=== PATIENT | female | born 1960 | race Caucasian/White ===

== ENCOUNTER 2019-02-16 04:26 | Outpatient (CLI) | payer MEDICARE, MEDICAID ==
[~2019-02-16 04:26] MED LIST: CALC667C5 PO; FOLI0.4T2 PO; FOLI1CAP7 PO; HYDR-4069 PO; LABE300T2 PO; LINA5TAB4 PO; LISI-600 PO; MINO2.5T19 PO; NIFE60TA69 PO; PANT20TA2 PO; VALS160T2 PO
== END 2019-02-16 23:59 | disposition home or self-care (01) ==
LOC: DIABETIC 04:26
PROVIDERS: ATTEND Nurse Practitioner Family
DX: E11.22 Type 2 diabetes mellitus with diabetic chronic kidney disease (principal); I12.9 Hypertensive chronic kidney disease with stage 1 through stage 4 chronic kidney disease, or unspecified chronic kidney disease; N18.9 Chronic kidney disease, unspecified; Z79.4 Long term (current) use of insulin
CPT/HCPCS: G0108

== ENCOUNTER 2019-06-09 04:37 | Outpatient (CLI) | payer MEDICARE, MEDICAID | END 2019-06-09 23:59 | disposition home or self-care (01) | LOC: DIABETIC 04:37 | PROVIDERS: ATTEND Nurse Practitioner Family | DX: E11.9 Type 2 diabetes mellitus without complications (principal); I10 Essential (primary) hypertension; Z79.4 Long term (current) use of insulin | CPT/HCPCS: G0108 ==

== ENCOUNTER 2020-05-10 17:39 | Emergency (ER) | payer MEDICARE, MEDICAID ==
[~2020-05-10] VITALS: Ht 162.6 cm; Wt 59.1 kg
[~2020-05-10 17:39] MED LIST changes: +ATOR10TA70 PO; +CARV25TA2 PO; +CLON0.3T36 PO; +DILT180C53 PO; -LABE300T2 PO; +LANTUS SQ; -LINA5TAB4 PO; -MINO2.5T19 PO; -NIFE60TA69 PO; +NOVLG SQ; +ONDA-103 PO; -PANT20TA2 PO; +PANT20TA3 PO; -VALS160T2 PO
[2020-05-10 18:32] LABS: EOSINOPHILS # (AUTO) 1.1 X10'3 (0-0.9); HEMOGLOBIN 12.5 g/dl (12.0-16.0); MEAN CORPUSCULAR HGB CONC 32.9 g/dL (33.0-36.5); MONOCYTES # (AUTO) 0.3 X10'3 (0-0.9)
[2020-05-10 18:33] LABS: BASOPHILS # (AUTO) 0.1 X10'3 (0-0.2); BASOPHILS % (AUTO) 0.9 % (0-1); EOSINOPHILS % (AUTO) 14.6 % (0-6); HEMATOCRIT 37.9 % (35.0-45.0); LYMPHOCYTES # (AUTO) 1.6 X10'3 (1.1-4.8); LYMPHOCYTES % (AUTO) 20.7 % (21-51); MEAN CORPUSCULAR HEMOGLOBIN 32.4 PG (27.0-31.0); MEAN CORPUSCULAR VOLUME 98.5 FL (78-98); MEAN PLATELET VOLUME 9.2 FL (7.4-10.4); MONOCYTES % (AUTO) 3.8 % (2-12); NEUTROPHILS # (AUTO) 4.7 X10'3 (1.8-7.7); PLATELET COUNT 276 X10'3 (140-440); RED BLOOD COUNT 3.85 X10'6 (4.20-5.60); RED CELL DISTRIBUTION WIDTH 15.9 % (11.5-14.5); WHITE BLOOD COUNT 7.8 X10'3 (4.5-11.0)
[2020-05-10 18:48] LABS: ALANINE AMINOTRANSFERASE 29 U/L (12-78); ALBUMIN 4.4 G/DL (3.4-5.0); ALBUMIN/GLOBULIN RATIO 1.3 (1.1-1.5); ALKALINE PHOSPHATASE 100 IU/L (46-116); AMYLASE 26 U/L (25-115); ANION GAP 11 (8-16); ASPARTATE AMINO TRANSFERASE 35 U/L (10-37); BILIRUBIN,TOTAL 0.4 MG/DL (0.1-1.0); BLOOD UREA NITROGEN 10 MG/DL (7-18); BUN/CREATININE RATIO 2.8 (6.6-38.0); CALCIUM 9.6 MG/DL (8.5-10.1); CHLORIDE 100 MMOL/L (99-107); CREATININE 3.62 MG/DL (0.40-0.90); GLUCOSE 162 MG/DL (70-104); LIPASE 123 U/L (73-393); POTASSIUM 4.3 MMOL/L (3.5-5.1); SODIUM 140 MMOL/L (135-145); TOTAL CARBON DIOXIDE 29.3 MMOL/L (24-32); TOTAL PROTEIN 7.9 G/DL (6.4-8.2); eGFR 13 ML/MIN
[2020-05-10] MEDS ORDERED: ondansetron/PF 4mg/2ml inj IV ONE (19:00)
[2020-05-10] MEDS ORDERED: proCHLORperazine 10 MG/2 ml inj IV ONE (19:00)
[2020-05-10] MEDS ORDERED: hydrALAZINE 20mg/ml inj. IV ONE (19:55)
[2020-05-10 21:08] VITALS: BP 231/104
== END 2020-05-10 21:09 | disposition home or self-care (01) ==
LOC: ER 17:40
DX: I12.0 Hypertensive chronic kidney disease with stage 5 chronic kidney disease or end stage renal disease (principal); E11.22 Type 2 diabetes mellitus with diabetic chronic kidney disease; N18.6 End stage renal disease; R11.2 Nausea with vomiting, unspecified; R10.84 Generalized abdominal pain; Z99.2 Dependence on renal dialysis; Z79.4 Long term (current) use of insulin; Z79.899 Other long term (current) drug therapy
CPT/HCPCS: 36415; 80053; 82150; 83690; 85025; 96374; 96375; 99284; J0360; J0780; J2405

== ENCOUNTER 2020-05-31 15:55 | Emergency (ER) | payer MEDICARE, MEDICAID ==
[~2020-05-31] VITALS: Ht 162.6 cm; Wt 57.1 kg
[~2020-05-31 15:55] MED LIST changes: +PANT20TA18 PO; -PANT20TA3 PO
[2020-05-31 17:12] LABS: BASOPHILS # (AUTO) 0.1 X10'3 (0-0.2); BASOPHILS % (AUTO) 1.2 % (0-1); EOSINOPHILS # (AUTO) 1.1 X10'3 (0-0.9); EOSINOPHILS % (AUTO) 15.1 % (0-6); HEMATOCRIT 41.3 % (35.0-45.0); HEMOGLOBIN 13.6 g/dl (12.0-16.0); LYMPHOCYTES % (AUTO) 13.4 % (21-51); MEAN CORPUSCULAR HEMOGLOBIN 32.7 PG (27.0-31.0); MEAN CORPUSCULAR HGB CONC 32.8 g/dL (33.0-36.5); MEAN CORPUSCULAR VOLUME 99.5 FL (78-98); MEAN PLATELET VOLUME 8.7 FL (7.4-10.4); MONOCYTES # (AUTO) 0.3 X10'3 (0-0.9); MONOCYTES % (AUTO) 3.5 % (2-12); NEUTROPHILS % (AUTO) 66.8 % (42-75); PLATELET COUNT 203 X10'3 (140-440); RED BLOOD COUNT 4.15 X10'6 (4.20-5.60); WHITE BLOOD COUNT 7.5 X10'3 (4.5-11.0)
[2020-05-31 17:21] LABS: ALANINE AMINOTRANSFERASE 31 U/L (12-78); ALBUMIN 4.4 G/DL (3.4-5.0); ALBUMIN/GLOBULIN RATIO 1.3 (1.1-1.5); ALKALINE PHOSPHATASE 110 IU/L (46-116); ANION GAP 7 (8-16); ASPARTATE AMINO TRANSFERASE 9 U/L (10-37); BILIRUBIN,TOTAL 0.4 MG/DL (0.1-1.0); BLOOD UREA NITROGEN 18 MG/DL (7-18); BUN/CREATININE RATIO 4.3 (6.6-38.0); CALCIUM 9.4 MG/DL (8.5-10.1); CHLORIDE 100 MMOL/L (99-107); CREATININE 4.21 MG/DL (0.40-0.90); GLUCOSE 203 MG/DL (70-104); POTASSIUM 5.1 MMOL/L (3.5-5.1); SODIUM 136 MMOL/L (135-145); TOTAL CARBON DIOXIDE 29.3 MMOL/L (24-32); TOTAL PROTEIN 7.8 G/DL (6.4-8.2); eGFR 11 ML/MIN
[2020-05-31] MEDS ORDERED: dexamethasone sod phosphate 10mg/ml inj PO STA (17:51)
[2020-05-31] MEDS ORDERED: acetaminophen 325mg tablet PO ONE (17:55)
[2020-05-31] MEDS ORDERED: ondansetron 4mg rapidly disintigrating tab PO ONE (17:55)
[2020-05-31] MEDS ORDERED: hydrALAZINE 20mg/ml inj. IV ONE (18:40)
[2020-05-31] MEDS ORDERED: proCHLORperazine 10 MG/2 ml inj IV ONE (18:40)
[2020-05-31 20:31] VITALS: BP 211/99
[2020-05-31] MEDS ORDERED: ONDA4TAB6 PO (20:37)
== END 2020-05-31 20:32 | disposition home or self-care (01) ==
LOC: ER 15:56
DX: I12.9 Hypertensive chronic kidney disease with stage 1 through stage 4 chronic kidney disease, or unspecified chronic kidney disease (principal); E11.22 Type 2 diabetes mellitus with diabetic chronic kidney disease; N18.9 Chronic kidney disease, unspecified; R11.2 Nausea with vomiting, unspecified; R51 Headache; Z79.899 Other long term (current) drug therapy; Z79.4 Long term (current) use of insulin
CPT/HCPCS: 36415; 80053; 85025; 96374; 96375; 99284; J0360; J0780; J1100

== ENCOUNTER 2020-10-24 07:48 | Day surgery (SDC) | payer MEDICARE, MEDICAID ==
[2020-10-24] VITALS (8 sets, daily range): BP systolic 120–158; BP diastolic 58–75
[~2020-10-24] VITALS: Ht 162.6 cm; Wt 61.4 kg
[~2020-10-24 07:48] MED LIST changes: +ONDA4TAB6 PO
[2020-10-24] MEDS ORDERED: diphenhydrAMINE 25mg capsule PO PRN (08:10)
[2020-10-24] MEDS ORDERED: normal saline 1,000 ML IV SCH (08:10)
[2020-10-24] MEDS ORDERED: AMLO10TA PO (08:26)
[2020-10-24] MEDS ORDERED: VITA-268 PO (08:26)
[2020-10-24] MEDS ORDERED: ONDA8TAB13 PO (08:26)
[2020-10-24 09:23] LABS: BASOPHILS # (AUTO) 0.1 X10'3 (0-0.2); BASOPHILS % (AUTO) 1.8 % (0-1); EOSINOPHILS # (AUTO) 1.8 X10'3 (0-0.9); EOSINOPHILS % (AUTO) 22.3 % (0-6); HEMATOCRIT 37.4 % (35.0-45.0); LYMPHOCYTES # (AUTO) 1.5 X10'3 (1.1-4.8); LYMPHOCYTES % (AUTO) 18.8 % (21-51); MEAN CORPUSCULAR HEMOGLOBIN 31.6 PG (27.0-31.0); MEAN CORPUSCULAR HGB CONC 32.3 g/dL (33.0-36.5); MEAN PLATELET VOLUME 8.6 FL (7.4-10.4); MONOCYTES # (AUTO) 0.7 X10'3 (0-0.9); MONOCYTES % (AUTO) 8.6 % (2-12); NEUTROPHILS # (AUTO) 3.9 X10'3 (1.8-7.7); NEUTROPHILS % (AUTO) 48.5 % (42-75); PLATELET COUNT 240 X10'3 (140-440); RED BLOOD COUNT 3.81 X10'6 (4.20-5.60); RED CELL DISTRIBUTION WIDTH 16.9 % (11.5-14.5)
[2020-10-24 09:25] LABS: ALBUMIN 3.3 G/DL (3.4-5.0); ANION GAP 13 (8-16); BLOOD UREA NITROGEN 57 MG/DL (7-18); BUN/CREATININE RATIO 7.5 (6.6-38.0); CALCIUM 9.3 MG/DL (8.5-10.1); CHLORIDE 100 MMOL/L (99-107); CREATININE 7.64 MG/DL (0.40-0.90); GLUCOSE 146 MG/DL (70-104); MAGNESIUM 2.4 MG/DL (1.5-2.4); POTASSIUM 4.9 MMOL/L (3.5-5.1); SODIUM 138 MMOL/L (135-145); TOTAL CARBON DIOXIDE 25.3 MMOL/L (24-32); eGFR 5 ML/MIN
[2020-10-24] MEDS ORDERED: iohexol 350MG/ML 100ml bottle IV ONE (09:25)
[2020-10-24] MEDS ORDERED: iohexol 350 MG/ML 50ML vial IV ONE (09:25)
[2020-10-24] MEDS ORDERED: fentaNYL/PF 50MCG/1 ML 2ML syringe ONE (09:25)
[2020-10-24] MEDS ORDERED: midazolam 2 mg/2 ml injection ONE (09:25)
[2020-10-24] MEDS ORDERED: LIDOcaine 1% (10mg/ml)w/preservative injection 20ml MDV ONE (09:25)
[2020-10-24] MEDS ORDERED: heparin 1,000unit/ml 10ml vial 10 ML ONE (09:25)
[2020-10-24 10:35] LABS: ANISOCYTOSIS 1+; PLATELET ESTIMATE NORMAL; TOTAL CELLS COUNTED 100
[2020-10-24] MEDS ORDERED: proCHLORperazine 10 MG/2 ml inj IV PRN (10:40)
[2020-10-24] MEDS ORDERED: HYDROcodone/acetaminophen 5mg/325mg tablet PO PRN (10:40)
[2020-10-24] MEDS ORDERED: ondansetron/PF 4mg/2ml inj IV PRN (10:40)
[2020-10-24] MEDS ORDERED: normal saline 1000ml 1,000 ML IV SCH (10:40)
[2020-10-24] MEDS ORDERED: HYDROcodone/acetaminophen 10/325mg tab PO PRN (10:40)
== END 2020-10-24 13:30 | disposition home or self-care (01) ==
LOC: SSTAY O 07:48
PROVIDERS: ATTEND Internal Medicine Cardiovascular Disease
DX: R94.39 Abnormal result of other cardiovascular function study (principal); I12.0 Hypertensive chronic kidney disease with stage 5 chronic kidney disease or end stage renal disease; E11.22 Type 2 diabetes mellitus with diabetic chronic kidney disease; N18.6 End stage renal disease; G47.30 Sleep apnea, unspecified; E78.5 Hyperlipidemia, unspecified; Z87.891 Personal history of nicotine dependence
CPT/HCPCS: 36415; 80048; 82948; 83735; 85025; 85610; 93005; 93458; 99152; C1760; C1769; C1894; J1644; J2001; J2250; J3010; J7030; Q0163; Q9967; 85007; 99153; A4620; A6258

== ENCOUNTER 2021-03-28 12:06 | Emergency (ER) | payer MEDICARE, MEDICAID ==
[~2021-03-28] VITALS: Ht 162.6 cm; Wt 59.0 kg
[~2021-03-28 12:06] MED LIST changes: +AMLO10TA PO; -CARV25TA2 PO; -DILT180C53 PO; +FOLI0.4T14 PO; -FOLI0.4T2 PO; -HYDR-4069 PO; -LISI-600 PO; +LISI20TA28 PO; -ONDA-103 PO; -ONDA4TAB6 PO; +ONDA8TAB13 PO; +VITA-268 PO
[2021-03-28 13:29] LABS: BASOPHILS # (AUTO) 0.1 X10'3 (0-0.2); BASOPHILS % (AUTO) 1.3 % (0-1); EOSINOPHILS # (AUTO) 0.5 X10'3 (0-0.9); EOSINOPHILS % (AUTO) 6.4 % (0-6); HEMATOCRIT 41.4 % (35.0-45.0); HEMOGLOBIN 13.6 g/dl (12.0-16.0); LYMPHOCYTES # (AUTO) 1.1 X10'3 (1.1-4.8); LYMPHOCYTES % (AUTO) 13.5 % (21-51); MEAN CORPUSCULAR HGB CONC 32.9 g/dL (33.0-36.5); MEAN CORPUSCULAR VOLUME 100.4 FL (78-98); MEAN PLATELET VOLUME 8.4 FL (7.4-10.4); MONOCYTES # (AUTO) 0.3 X10'3 (0-0.9); MONOCYTES % (AUTO) 4.1 % (2-12); NEUTROPHILS % (AUTO) 74.7 % (42-75); PLATELET COUNT 213 X10'3 (140-440); RED BLOOD COUNT 4.12 X10'6 (4.20-5.60); RED CELL DISTRIBUTION WIDTH 17.6 % (11.5-14.5); WHITE BLOOD COUNT 8.1 X10'3 (4.5-11.0)
[2021-03-28 13:48] LABS: ALANINE AMINOTRANSFERASE 21 U/L (12-78); ALBUMIN 4.7 G/DL (3.4-5.0); ALBUMIN/GLOBULIN RATIO 1.3 (1.1-1.5); ALKALINE PHOSPHATASE 119 IU/L (46-116); ANION GAP 16 (8-16); ASPARTATE AMINO TRANSFERASE 16 U/L (10-37); BILIRUBIN,TOTAL 0.6 MG/DL (0.1-1.0); BLOOD UREA NITROGEN 13 MG/DL (7-18); BUN/CREATININE RATIO 3.3 (6.6-38.0); CALCIUM 10.1 MG/DL (8.5-10.1); CHLORIDE 96 MMOL/L (99-107); CREATININE 3.89 MG/DL (0.40-0.90); GLUCOSE 247 MG/DL (70-104); LIPASE 102 U/L (73-393); POTASSIUM 4.6 MMOL/L (3.5-5.1); SODIUM 139 MMOL/L (135-145); TOTAL CARBON DIOXIDE 27.5 MMOL/L (24-32); TOTAL PROTEIN 8.3 G/DL (6.4-8.2); eGFR 12 ML/MIN
[2021-03-28] MEDS ORDERED: hydrALAZINE 20mg/ml inj. IV ONE (15:05)
[2021-03-28] MEDS ORDERED: ondansetron 4mg/5ml UD cup PO ONE (15:05)
[2021-03-28] MEDS ORDERED: diphenhydrAMINE 50 mg/ml inj IV ONE (15:05)
[2021-03-28] MEDS ORDERED: ondansetron 4mg rapidly disintigrating tab PO ONE (15:15)
[2021-03-28] MEDS ORDERED: haloperidol lactate 5mg/ml inj IM ONE (16:30)
[2021-03-28] MEDS ORDERED: LORazepam 2 mg/ml vial IV ONE (17:15)
[2021-03-28] MEDS ORDERED: labetalol 20mg/4ml (5mg/ml) syringe IV ONE ×3 (17:15→19:50)
--- NOTE | 2021-03-28 19:49 | NUR ---
PA AWARE OF CONTINUED HYPERTENSION
[2021-03-28] MEDS ORDERED: HYDR-4070 PO (20:23)
[2021-03-28 21:10] VITALS: BP 195/94
== END 2021-03-28 21:13 | disposition home or self-care (01) ==
LOC: ER 12:07
DX: R11.2 Nausea with vomiting, unspecified (principal); R41.82 Altered mental status, unspecified; I12.9 Hypertensive chronic kidney disease with stage 1 through stage 4 chronic kidney disease, or unspecified chronic kidney disease; E11.22 Type 2 diabetes mellitus with diabetic chronic kidney disease; N18.9 Chronic kidney disease, unspecified; Z79.4 Long term (current) use of insulin; Z79.899 Other long term (current) drug therapy; R46.89 Other symptoms and signs involving appearance and behavior
CPT/HCPCS: 36415; 70450; 80053; 83690; 84484; 85025; 93005; 96372; 96374; 96375; 96376; 99285; J0360; J1200; J1630; J2060; J3490

== ENCOUNTER 2021-03-30 16:11 | Emergency (ER) | payer MEDICARE, MEDICAID ==
[~2021-03-30] VITALS: Ht 162.6 cm; Wt 57.6 kg
[~2021-03-30 16:11] MED LIST changes: +HYDR-4070 PO
[2021-03-30 17:20] LABS: BASOPHILS # (AUTO) 0.2 X10'3 (0-0.2); BASOPHILS % (AUTO) 1.9 % (0-1); EOSINOPHILS # (AUTO) 0.5 X10'3 (0-0.9); EOSINOPHILS % (AUTO) 6.4 % (0-6); HEMATOCRIT 42.4 % (35.0-45.0); HEMOGLOBIN 13.6 g/dl (12.0-16.0); LYMPHOCYTES # (AUTO) 2.6 X10'3 (1.1-4.8); LYMPHOCYTES % (AUTO) 31.7 % (21-51); MEAN CORPUSCULAR HEMOGLOBIN 32.8 PG (27.0-31.0); MEAN CORPUSCULAR HGB CONC 32.2 g/dL (33.0-36.5); MEAN CORPUSCULAR VOLUME 102.1 FL (78-98); MEAN PLATELET VOLUME 8.6 FL (7.4-10.4); MONOCYTES # (AUTO) 0.7 X10'3 (0-0.9); NEUTROPHILS # (AUTO) 4.3 X10'3 (1.8-7.7); PLATELET COUNT 201 X10'3 (140-440); RED BLOOD COUNT 4.15 X10'6 (4.20-5.60); RED CELL DISTRIBUTION WIDTH 17.6 % (11.5-14.5); WHITE BLOOD COUNT 8.2 X10'3 (4.5-11.0)
[2021-03-30 17:33] LABS: ALANINE AMINOTRANSFERASE 24 U/L (12-78); ALBUMIN 3.9 G/DL (3.4-5.0); ALBUMIN/GLOBULIN RATIO 1.3 (1.1-1.5); ALKALINE PHOSPHATASE 92 IU/L (46-116); AMYLASE 17 U/L (25-115); ANION GAP 12 (8-16); ASPARTATE AMINO TRANSFERASE 17 U/L (10-37); BILIRUBIN,TOTAL 0.4 MG/DL (0.1-1.0); BLOOD UREA NITROGEN 18 MG/DL (7-18); BUN/CREATININE RATIO 4.7 (6.6-38.0); CHLORIDE 95 MMOL/L (99-107); CREATININE 3.87 MG/DL (0.40-0.90); GLUCOSE 56 MG/DL (70-104); LIPASE < 50 U/L (73-393); POTASSIUM 3.9 MMOL/L (3.5-5.1); SODIUM 135 MMOL/L (135-145); eGFR 12 ML/MIN
[2021-03-30 18:53] VITALS: BP 133/74
== END 2021-03-30 18:46 | disposition home or self-care (01) ==
LOC: ER 16:12
DX: R09.89 Other specified symptoms and signs involving the circulatory and respiratory systems (principal); I95.1 Orthostatic hypotension; R11.2 Nausea with vomiting, unspecified; I12.9 Hypertensive chronic kidney disease with stage 1 through stage 4 chronic kidney disease, or unspecified chronic kidney disease; E11.22 Type 2 diabetes mellitus with diabetic chronic kidney disease; N18.9 Chronic kidney disease, unspecified; Z79.4 Long term (current) use of insulin; Z79.899 Other long term (current) drug therapy
CPT/HCPCS: 36415; 80053; 82150; 83690; 85025; 99283

== ENCOUNTER 2021-04-05 08:50 | Day surgery (SDC) | payer MEDICARE, MEDICAID ==
[~2021-04-05] VITALS: Ht 162.6 cm; Wt 59.1 kg
[2021-04-05 09:05] VITALS: BP 165/98
[2021-04-05] MEDS ORDERED: MIDAZolam 1 MG/ML 5ML VIAL ONE (09:15)
[2021-04-05] MEDS ORDERED: fentaNYL/PF 50MCG/1 ML 2ML syringe ONE (09:15)
[2021-04-05] MEDS ORDERED: LIDOcaine Viscous 15ml cup ONE (09:16)
[2021-04-05] MEDS ORDERED: HYDR-4069 PO (09:22)
[2021-04-05 10:43] VITALS: BP 174/69
[2021-04-05 10:53] VITALS: BP 194/69
[2021-04-05 11:03] VITALS: BP 186/72
[2021-04-05 11:13] VITALS: BP 185/74
== END 2021-04-05 11:30 | disposition home or self-care (01) ==
LOC: GI LAB 08:50
PROVIDERS: ATTEND Internal Medicine Gastroenterology
DX: Z12.11 Encounter for screening for malignant neoplasm of colon (principal); D50.0 Iron deficiency anemia secondary to blood loss (chronic); K29.50 Unspecified chronic gastritis without bleeding; K31.89 Other diseases of stomach and duodenum; D12.8 Benign neoplasm of rectum; D12.4 Benign neoplasm of descending colon; K57.30 Diverticulosis of large intestine without perforation or abscess without bleeding; I10 Essential (primary) hypertension; E11.9 Type 2 diabetes mellitus without complications; Z79.4 Long term (current) use of insulin; Z87.891 Personal history of nicotine dependence; Z86.010 Personal history of colon polyps; Z79.899 Other long term (current) drug therapy; Z98.51 Tubal ligation status; Z98.890 Other specified postprocedural states; Z83.3 Family history of diabetes mellitus
CPT/HCPCS: 43239; 45380; 45385; 88305; 99153; C1773; G0500; J2250; J3010; J7040; 99152; A4620

== ENCOUNTER 2022-11-03 10:37 | Emergency (ER) | payer MEDICARE, MEDICAID ==
[~2022-11-03] VITALS: Ht 162.6 cm; Wt 72.7 kg
[~2022-11-03 10:37] MED LIST changes: +HYDR-4069 PO; -HYDR-4070 PO
[2022-11-03 12:29] LABS: CLARITY,URINE SLIGHTLY CLOUDY (Clear); COLOR,URINE YELLOW (Yellow); GLUCOSE, URINE NEGATIVE (Neg); KETONES,URINE 15 mg/dl (Neg); LEUKOCYTE ESTERASE ,URINE MODERATE (Neg); OCCULT BLOOD,URINE MODERATE (Neg); PH,URINE 5.5 (4.8-8.0); PROTEIN,URINE 100 mg/dl (Neg)
[2022-11-03 12:31] LABS: UA COLLECTION TYPE CLN CATCH MIDSTREAM
[2022-11-03 12:33] LABS: NITRITES, URINE NEGATIVE (Neg)
[2022-11-03 12:40] LABS: ALANINE AMINOTRANSFERASE 34 U/L (12-78); ALBUMIN 3.4 G/DL (3.4-5.0); ALBUMIN/GLOBULIN RATIO 0.9 (1.1-1.5); ALKALINE PHOSPHATASE 118 IU/L (46-116); ANION GAP 10 (8-16); ASPARTATE AMINO TRANSFERASE 23 U/L (10-37); BASOPHILS # (AUTO) 0.1 X10'3 (0-0.2); BASOPHILS % (AUTO) 0.3 % (0-1); BILIRUBIN,TOTAL 0.8 MG/DL (0.1-1.0); BLOOD UREA NITROGEN 34 MG/DL (7-18); BUN/CREATININE RATIO 23.8 (6.6-38.0); CALCIUM 9.2 MG/DL (8.5-10.1); CHLORIDE 102 MMOL/L (99-107); CREATININE 1.43 MG/DL (0.40-0.90); EOSINOPHILS % (AUTO) 0.3 % (0-6); GLUCOSE 117 MG/DL (70-104); HEMATOCRIT 40.7 % (35.0-45.0); HEMOGLOBIN 13.5 g/dl (12.0-16.0); LYMPHOCYTES # (AUTO) 0.8 X10'3 (1.1-4.8); LYMPHOCYTES % (AUTO) 4.6 % (21-51); MEAN CORPUSCULAR HGB CONC 33.3 g/dL (33.0-36.5); MEAN CORPUSCULAR VOLUME 93.1 FL (78-98); MEAN PLATELET VOLUME 8.6 FL (7.4-10.4); MONOCYTES # (AUTO) 1.2 X10'3 (0-0.9); MONOCYTES % (AUTO) 7.1 % (2-12); NEUTROPHILS # (AUTO) 14.8 X10'3 (1.8-7.7); NEUTROPHILS % (AUTO) 87.7 % (42-75); PLATELET COUNT 158 X10'3 (140-440); POTASSIUM 3.8 MMOL/L (3.5-5.1); RED BLOOD COUNT 4.37 X10'6 (4.20-5.60); RED CELL DISTRIBUTION WIDTH 13.9 % (11.5-14.5); SODIUM 139 MMOL/L (135-145); TOTAL CARBON DIOXIDE 26.9 MMOL/L (24-32); TOTAL PROTEIN 7.4 G/DL (6.4-8.2); WHITE BLOOD COUNT 16.9 X10'3 (4.5-11.0); eGFR 37 ML/MIN
[2022-11-03 12:47] LABS: SQUAMOUS EPITHELIAL CELL,UR MODERATE /LPF (FEW)
[2022-11-03 12:48] LABS: WBC,URINE 50-100 /HPF (0-4)
[2022-11-03 12:52] LABS: BACTERIA,URINE 2+ /HPF (Neg)
[2022-11-03] MEDS ORDERED: cephalexin 500mg capsule PO ONE (14:55)
[2022-11-03] MEDS ORDERED: metoclopramide 10mg/10 ml UD oral solution PO PRN ×2 (14:55→15:22)
[2022-11-03] MEDS ORDERED: METO-292 PO (15:40)
[2022-11-03] MEDS ORDERED: CEPH500C81 PO (15:40)
[2022-11-03] MEDS ORDERED: ondansetron 4mg rapidly disintigrating tab PO ONE (16:10)
[2022-11-03 16:26] VITALS: BP 162/76
[2022-11-03] MEDS ORDERED: acetaminophen 325mg tablet PO STA (16:28)
== END 2022-11-03 17:31 | disposition home or self-care (01) ==
LOC: ER 10:38
DX: N39.0 Urinary tract infection, site not specified (principal); R11.10 Vomiting, unspecified; M79.18 Myalgia, other site; E78.00 Pure hypercholesterolemia, unspecified; I12.9 Hypertensive chronic kidney disease with stage 1 through stage 4 chronic kidney disease, or unspecified chronic kidney disease; E11.22 Type 2 diabetes mellitus with diabetic chronic kidney disease; N18.9 Chronic kidney disease, unspecified; Z98.890 Other specified postprocedural states; Z79.899 Other long term (current) drug therapy; Z79.4 Long term (current) use of insulin
CPT/HCPCS: 36415; 80053; 81001; 82948; 85025; 87077; 87088; 87186; 99284; J8597